=== PATIENT | male | born 1955 | race Caucasian/White ===

== ENCOUNTER 2021-01-21 10:12 | Outpatient (CLI) | payer MEDICARE, BC ==
[2021-01-22 02:30] LABS: SARS-CoV-2 PCR by NAA Not Detected (NotDetected)
== END 2021-01-21 10:13 | disposition home or self-care (01) ==
LOC: LABBT 10:12
PROVIDERS: ATTEND Ophthalmology Retina Specialist
DX: Z01.812 Encounter for preprocedural laboratory examination (principal); H43.821 Vitreomacular adhesion, right eye; Z20.822 Contact with and (suspected) exposure to COVID-19
CPT/HCPCS: U0003; U0005; 87635

== ENCOUNTER 2021-01-24 06:16 | Day surgery (SDC) | payer MEDICARE, BC ==
[2021-01-22 15:49] VITALS: BMI 29.4
[2021-01-24] MEDS ORDERED: Fluorouracil 100 MG, Enoxaparin Sodium 25 MG, EPINEPHrine 0.3 MG in Ophthalmic Irrigati... IRR SCH (06:30)
[2021-01-24] MEDS ORDERED: Midazolam HCl 2 mg/2 ml Vial ONE (06:38)
[2021-01-24] MEDS ORDERED: Fentanyl 100 MCG/2 ML VIAL ONE (06:38)
[2021-01-24] MEDS ORDERED: Cyclopentolate W/ Phenylephrin 40 DROP/2 ML BOT ONE (06:41)
[2021-01-24] MEDS ORDERED: Phenylephrine 2.5% Ophth Soln 5 ML BOT ONE (06:41)
[2021-01-24] MEDS ORDERED: Lidocaine 1% PF 5 ML VIAL ONE (07:42)
[2021-01-24] MEDS ORDERED: PROPOFOL 200 MG/20 ML VIAL ONE (07:42)
[2021-01-24] MEDS ORDERED: Maxitrol 0.1% Opth Oint 3.5 GM TUBE ONE (07:42)
[2021-01-24] MEDS ORDERED: CEFAZOLIN 1 GM VIAL ONE (07:42)
[2021-01-24] MEDS ORDERED: Lidocaine 4% PF 5 ML AMP ONE (07:42)
[2021-01-24] MEDS ORDERED: Bupivacaine PF 0.75% SDV 10 ML ONE (07:42)
[2021-01-24] MEDS ORDERED: Triamcinolone 40 MG/ML VIAL ONE (07:42)
== END 2021-01-24 08:47 | disposition home or self-care (01) ==
LOC: SDC 06:16
PROVIDERS: ATTEND Ophthalmology Retina Specialist
PROC: 08T43ZZ Resection of Right Vitreous, Percutaneous Approach (ICD-10-PCS; principal; 2021-01-24)
PROC: 08NE3ZZ Release Right Retina, Percutaneous Approach (ICD-10-PCS; 2021-01-24)
DX: H43.821 Vitreomacular adhesion, right eye (principal); I12.9 Hypertensive chronic kidney disease with stage 1 through stage 4 chronic kidney disease, or unspecified chronic kidney disease; N18.9 Chronic kidney disease, unspecified; Z79.52 Long term (current) use of systemic steroids; Z79.899 Other long term (current) drug therapy; Z94.0 Kidney transplant status
CPT/HCPCS: J0171; J0690; J1650; J2250; J2704; J3010; J3301; J3490; J9190

== ENCOUNTER 2021-02-18 09:03 | Outpatient (CLI) | payer MEDICARE, BC ==
[2021-02-18 18:20] LABS: SARS-CoV-2 PCR by NAA Not Detected (NotDetected)
== END 2021-02-18 09:04 | disposition home or self-care (01) ==
LOC: LABBT 09:03
PROVIDERS: ATTEND Ophthalmology Retina Specialist
DX: Z01.812 Encounter for preprocedural laboratory examination (principal); H35.341 Macular cyst, hole, or pseudohole, right eye; Z20.822 Contact with and (suspected) exposure to COVID-19
CPT/HCPCS: U0003; U0005; 87635

== ENCOUNTER 2021-02-21 05:50 | Day surgery (SDC) | payer MEDICARE, BC ==
[2021-02-20 14:12] VITALS: BMI 29.2
[2021-02-21] MEDS ORDERED: Cyclopentolate 1% Ophth Drops 15 ML BOT ONE (05:54)
[2021-02-21] MEDS ORDERED: Phenylephrine 2.5% Ophth Soln 5 ML BOT ONE (05:54)
[2021-02-21] MEDS ORDERED: Fluorouracil 100 MG, Enoxaparin Sodium 25 MG, EPINEPHrine 0.3 MG in Ophthalmic Irrigati... IRR SCH ×2 (06:15→06:30)
[2021-02-21] MEDS ORDERED: PROPOFOL 20 ML ONE (06:28)
[2021-02-21] MEDS ORDERED: Fentanyl 100 MCG/2 ML VIAL ONE (06:28)
[2021-02-21] MEDS ORDERED: Midazolam HCl 2 mg/2 ml Vial ONE (06:28)
[2021-02-21] MEDS ORDERED: Indocyanine Green 25 MG/10 ML VIAL ONE (07:08)
[2021-02-21] MEDS ORDERED: Triamcinolone 40 MG/ML VIAL ONE (07:08)
[2021-02-21] MEDS ORDERED: Enoxaparin Sodium 30 MG/0.3 ML SYRINGE ONE (07:08)
[2021-02-21] MEDS ORDERED: Bupivacaine PF 0.75% SDV 10 ML ONE (07:08)
[2021-02-21] MEDS ORDERED: CEFAZOLIN 1 GM VIAL ONE (07:08)
[2021-02-21] MEDS ORDERED: Lidocaine 1% PF 5 ML VIAL ONE (07:08)
[2021-02-21] MEDS ORDERED: Maxitrol 0.1% Opth Oint 3.5 GM TUBE ONE (07:08)
[2021-02-21] MEDS ORDERED: Lidocaine 4% PF 5 ML AMP ONE (07:08)
== END 2021-02-21 08:50 | disposition home or self-care (01) ==
LOC: SDC 05:50
PROVIDERS: ATTEND Ophthalmology Retina Specialist
PROC: 08T43ZZ Resection of Right Vitreous, Percutaneous Approach (ICD-10-PCS; principal; 2021-02-21)
PROC: 08NE3ZZ Release Right Retina, Percutaneous Approach (ICD-10-PCS; 2021-02-21)
DX: H35.341 Macular cyst, hole, or pseudohole, right eye (principal); Z79.82 Long term (current) use of aspirin; Z79.899 Other long term (current) drug therapy
CPT/HCPCS: 67025; J0171; J0690; J1650; J2250; J2704; J3010; J3301; J3490; J9190

== ENCOUNTER 2022-09-08 12:44 | Emergency (ER) | payer MEDICARE, BC ==
[2022-09-08 13:10] LABS: #Lymphocytes 0.8 thou/uL (1.20-3.40); #Monocytes 0.9 thou/uL (0.11-0.59); #Neutrophils 8.5 thou/uL (1.40-6.50); %Basophils 0.1 % (0.0-1.0); %Eosinophils 0.1 % (0.0-10.0); %Lymphocytes 7.9 % (21.0-51.0); %Monocytes 8.9 % (0.0-10.0); %Neutrophils 82.9 % (42.0-75.0); Hemoglobin 16.3 g/dL (14.0-18.0); Mean Corpuscular HGB CONC 32.9 g/dL (32.0-36.0); Mean Corpuscular Hemoglobin 30.1 pg (27.0-31.0); Mean Corpuscular Volume 91.5 fL (78.0-98.0); Platelet Count 203 thou/uL (130-400); RBC Distribution Width 12.7 % (11.5-14.5); White Blood Cell (WBC) Count 10.2 thou/uL (4.8-10.8)
[2022-09-08 13:35] LABS: ALT (SGPT) 18 U/L (8-55); AST (SGOT) 30 U/L (5-34); Albumin 4.2 g/dL (3.4-4.8); Alkaline Phosphatase 47 U/L (40-110); Anion Gap 15 mmol/L (10-20); BUN (Urea Nitrogen) 11 mg/dL (8.4-25.7); Bilirubin, Total 1.5 mg/dL (0.2-1.2); Calc. Creatinine Clearance 0 mL/min (70-130); Calcium 8.4 mg/dL (7.8-10.44); Carbon Dioxide 23 mmol/L (23-31); Chloride 94 mmol/L (98-107); Estimated GFR 54; Globulin 3.4 g/dL (2.4-3.5); Glucose 253 mg/dL (80-115); Potassium 4.7 mmol/L (3.5-5.1); Protein, Total 7.6 g/dL (5.8-8.1); Sodium 127 mmol/L (136-145)
== END 2022-09-08 16:25 | disposition home or self-care (01) ==
LOC: ERS 12:44
DX: B34.9 Viral infection, unspecified (principal)
CPT/HCPCS: 36415; 71045; 80053; 85025

== ENCOUNTER 2023-05-29 07:23 | Outpatient (CLI) | payer MEDICARE, BC ==
[2023-05-29] MEDS ORDERED: Iopamidol 370 76% 100 ML VIAL ONE (10:41)
== END 2023-05-29 07:24 | disposition home or self-care (01) ==
LOC: CT 07:23
PROVIDERS: ATTEND Internal Medicine
DX: C18.7 Malignant neoplasm of sigmoid colon (principal); Q61.3 Polycystic kidney, unspecified
CPT/HCPCS: 74177

== ENCOUNTER 2023-10-19 11:26 | Outpatient (CLI) | payer MEDICARE, BC | END 2023-10-19 11:27 | disposition home or self-care (01) | LOC: BICRAD 11:26 | PROVIDERS: ATTEND Nurse Practitioner Family | DX: J06.9 Acute upper respiratory infection, unspecified (principal) | CPT/HCPCS: 71046 ==